=== PATIENT | male | born 1980 | race African-American/Black ===

== ENCOUNTER 2016-07-24 14:51 | Emergency (ER) ==
--- NOTE | 2016-07-24 16:04 | Diag Imaging Result Document ---
PROCEDURE NAME: FLAT/UPRIGHT ABD/1 VIEW CHEST - 07/24/2016 FLAT AND UPRIGHT AND CHEST, THREE VIEWS: FINDINGS: The lungs are well expanded. The heart is not enlarged. No pneumonia. No free air beneath the diaphragm. There is stool throughout the colon. The bowel loops are not dilated. No organomegaly. No foreign body. No abnormal abdominal calcifications. IMPRESSION: Mild constipation.
--- NOTE | 2016-07-24 16:22 | PROVIDER DOCUMENTATION ---
HPI-Abdominal Pain/GI Problem <Roxana King - Last Filed: 07/24/16 19:40> - General Source: patient - History of Present Illness-ABD Nature of Presenting Problems: 35 y/o AAM c/o right groin pain thinking it is a hernia. states he has an enlargement in the right groin, that has been present for months now. States in the past 3 days it has become more uncomfortable. States he tries to push it back in, but then it comes back out. Denies nausea, vomiting or fevers. Abdominal Pain Onset Location: reports: RLQ Pain Radiation: reports: no radiation Quality of Pain: reports: aching Severity in ED: reports: mild Onset/Duration: reports: other (months) <Naomi Woods - Last Filed: 07/24/16 19:50> - General Chief Complaint: Groin Pain Stated Complaint: POSS HERNIA Time Seen by Provider: 07/24/16 16:11 Allergies/Adverse Reactions: Patient Allergies Allergy/AdvReac Type Severity Reaction Status Date / Time No Known Allergies Allergy Verified 07/24/16 17:45 Home Medications: Home Medication List Medication Instructions Recorded Confirmed Last Taken Type No Home Medications 07/24/16 07/24/16 Unknown History Review of Systems - Adult - REVIEW OF SYSTEMS - ADULT Constitutional: reports: no symptoms reported. denies: chills, fever, fatique Eyes: reports: no symptoms reported. denies: blurred vision, double vision, eye pain Ears, Nose, Mouth & Throat: reports: no symptoms reported. denies: ear pain, nose pain, throat pain Cardiovascular: reports: no symptoms reported. denies: chest pain, palpitations Respiratory: reports: no symptoms reported. denies: cough, shortness of breath , wheezing Gastrointestinal: reports: no symptoms reported. denies: abdominal pain, diarrhea, nausea, vomiting Genitourinary: reports: no symptoms reported. denies: dysuria, discharge, frequency, incontinence Musculoskeletal: reports: no symptoms reported. denies: bone pain, back pain, muscle aches Integumentary: reports: no symptoms reported. denies: rash Neurological: reports: no symptoms reported. denies: headache/migraines Psychiatric: reports: no symptoms reported Endocrine: reports: no symptoms reported Hematologic/Lymphatic: reports: no symptoms reported Allergic/Immunologic: reports: no symptoms reported All Other Systems: Reviewed and Negative <Naomi Woods - Last Filed: 07/24/16 19:50> Past History - Adult - PAST MEDICAL HISTORY-ADULT Review of Records: reports: Old Records Reviewed, Nursing Assessment Review, Medications Reviewed Major Childhood Illnesses: reports: denies history Cardiovascular: reports: denies history Respiratory: reports: denies history Gastrointestinal: reports: denies history Genitourinary: reports: denies history Musculoskeletal: reports: denies history Neurological: reports: denies history Endocrine/Immune: reports: denies history Other Conditions: reports: denies history - PRIOR SURGERIES/PROCEDURES Surgical/Procedure History: reports: back/neck (lumbar fusion) - FAMILY HISTORY Family History: reviewed, not pertinent - SOCIAL HISTORY Smoking: denies Substance Use: none/never Alcohol Use Frequency: never <Naomi Woods - Last Filed: 07/24/16 19:50> Physical Exam-General - PHYSICAL EXAM-ADULT Initial Vital Signs Reviewed: Yes - CONSTITUTIONAL General Appearance: appears well, alert, no apparent distress - EYES Eyes: PERRL/EOMI, pink conjunctivae - HEAD, EARS, NOSE, MOUTH & THROAT HENMT: normocephalic/atraumatic, moist mucous membranes - NECK Neck: normal inspection - RESPIRATORY Respiratory: chest non-tender, lungs clear, normal breath sounds, no pleuratic chest pain, no respiratory distress, no accessory muscle use. negative: respiratory distress, decreased breath sounds, accessory muscle use, crackles, rales, rhonchi, wheezing - CARDIOVASCULAR Cardiovascular: normal peripheral pulses, regular rate, rhythm - GASTROINTESTINAL (ABDOMEN) Abdominal Exam: normal bowel sounds, soft, no organomegaly, no pulsatile mass, tenderness (generalized), hernia (right inguinal, I am not able to reduce this) - MUSCULOSKELETAL Extremity: normal gait Peripheral Pulses: radial (R): 2+, radial (L): 2+ - SKIN Integumentary: normal color, normal turgor, warm/dry - NEUROLOGIC Neurologic: grossly normal, no motor/sensory deficits - PSYCHIATRIC Psych/Mental Status: normal mood/affect, normal thought content, normal thought process, oriented x 3 <Naomi Woods - Last Filed: 07/24/16 19:50> Progress - CT/MRI 1 Impression: Abnormal (Fat in the Right inguinal hernia. No bowel. No bowel obscruction. No abscess. No hydronephrosis. Constipation) <Roxana King - Last Filed: 07/24/16 19:40> - PLAN OF CARE/RESULTS Progress/Plan/Lab Results: liam Menjivar as cosmetic sales advisor during the exam Vital Signs Temp Pulse Resp BP Pulse Ox 07/24/16 15:00 98.9 F 81 18 146/80 100 No Known Allergies Allergy (Verified 07/24/16 17:45) No Home Medications 07/24/16 Dietary Diet NPO Start SunJul 24 1513 Laboratory 07/24/16 07/24/16 07/24/16 17:45 17:40 17:40 WBC 9.30 RBC 5.06 Hgb 14.5 Hct 43.7 MCV 86.4 MCH 28.7 MCHC 33.2 RDW Std Deviation 14.2 Plt Count 244 MPV 10.9 H Immature Gran % (Auto) 0.0 Neut % (Auto) 54.4 Lymph % (Auto) 34.1 [place] % (Auto) 8.8 Eos % (Auto) 2.2 Baso % (Auto) 0.5 Immature Gran # (Auto) 0.00 Neut # (Auto) 5.06 Lymph # (Auto) 3.17 [place] # (Auto) 0.82 H Eos # (Auto) 0.20 Baso # (Auto) 0.05 Sodium 140 Potassium 4.2 Chloride 100 Carbon Dioxide 29 Anion Gap 11 BUN 9 Creatinine 0.9 Estimated GFR/1.73 m2 > 60 BUN/Creatinine Ratio 10 Glucose 87 Calculated Osmolality 277 Calcium 9.3 Total Bilirubin 0.20 AST 20 ALT 17 Alkaline Phosphatase 90 Total Protein 7.2 Albumin 4.4 Globulin 2.8 Albumin/Globulin Ratio 1.6 Amylase 60 Lipase 19 Urine Source CLEAN CATCH Urine Color YELLOW Urine Turbidity CLEAR Urine pH 7.0 Ur Specific [place] 1.014 Urine Protein NEGATIVE Ur Glucose (Stick) NEGATIVE Ur Ketones (Stick) NEGATIVE Urine Blood NEGATIVE Urine Nitrite NEGATIVE Urine Bilirubin NEGATIVE Urobilinogen Dipstick NORMAL Urine Leukocytes NEGATIVE Urine WBC (Auto) <10 Urine RBC (Auto) <10 U Epithel Cells (Auto) <10 Urine Bacteria (Auto) NEGATIVE Orders Category Date Time Status Saline Loc DIRECTED Care 07/24/16 15:13 Active NPO Diet 07/24/16 15:[address] ABD/PELVIS W/ IV CONT ONLY [CT] Stat Exams 07/24/16 17:37 Taken flat [FLAT/UPRIGHT ABD/1 VIEW CHEST] [RAD] Stat Exams 07/24/16 15:20 Completed AMYLASE [CHEM] Stat Lab 07/24/16 17:40 Completed CBC WITH ELECTRONIC DIFF [HEME] Stat Lab 07/24/16 17:40 Completed COMPREHENSIVE METABOLIC PANEL [CHEM] Stat Lab 07/24/16 17:40 Completed LIPASE [CHEM] Stat Lab 07/24/16 17:40 Completed URINALYSIS W/POSS RFLX CULT [URINALYSIS] Stat Lab 07/24/16 17:[address] Gandara to bedside and directly participated in patient care - XRAY 1 XRAY: Bilateral XRAY Study: Chest Impression: Abnormal (mild constipation) - CT/MRI 1 CT Study: Abdomen, Pelvis <Naomi Woods - Last Filed: 07/24/16 19:50> Departure <Roxana King - Last Filed: 07/24/16 19:40> - Departure Time of Disposition Order: 19:49 Certified Medical Emergency: Emergent <Naomi Woods - Last Filed: 07/24/16 19:50> - Departure DIAGNOSIS: Right inguinal hernia, Constipation by delayed colonic transit Disposition: HOME 01 Condition: Stable Additional Instructions: Follow up with Dr. Singh, surgeon ED Follow Up Instructions: You have been treated by a care provider in the Emergency Department. These instructions are being provided to you so you can have an understanding of how to care for yourself upon discharge. Upon discharge from the Emergency Department, you are responsible for making arrangements for follow-up care by a physician of your choice. Take all prescribed medications as directed. Return to the Emergency Department immediately for any new or worsening symptoms. You may call the Physician Referral phone number at [phone] to obtain a list of Physicians who are taking new patients. Referrals: None,PCP [Primary Care Provider] - Kolby Osorio MD [STAFF PHYSICIAN] - Attestation - Physician/ JOSE L Attestation Patient care was provided by Advanced Practice Provider:: Yes Advanced Practice Provider:: Naomi Woods Advanced Practice Provider documentation review:: The Mid-level provider documentation, treatment plan and medical decision making was reviewed by the physician who agrees with all treatment and medical decision making by the MLP. The physician spent face to face time with patient:: Yes <Naomi Woods - Last Filed: 07/24/16 19:50> Physician Attestation
[2016-07-24 17:53] LABS: MANUAL DIFF NEEDED? NO
[2016-07-24 17:58] LABS: BASO% 0.5 % (0.0-0.8); EOS% 2.2 % (0.0-10.0); HEMATOCRIT 43.7 % (42.0-52.0); HEMOGLOBIN 14.5 g/dL (14.0-18.0); LYMPH# 3.17 X1000 (1.2-3.4); LYMPH% 34.1 % (20.5-51.1); MCH 28.7 PG (27-31); MCHC 33.2 g/dL (33-37); MCV 86.4 FL (81-99); MONO# 0.82 X1000 (0.11-0.59); MONO% 8.8 % (1.7-9.3); MPV 10.9 FL (7.4-10.4); NEUT% 54.4 % (42.2-75.2); PLT 244 X1000 (130-400); RBC 5.06 XMIL (4.7-6.1)
[2016-07-24 18:13] LABS: URINE CULTURE NEEDED? NO; URINE MICRO REVIEW NEEDED? NO; URINE SOURCE CLEAN CATCH
[2016-07-24 18:18] LABS: BILIRUBIN URINE NEGATIVE (NEGATIVE); BLOOD URINE NEGATIVE (NEGATIVE); COLOR YELLOW; GLUCOSE URINE NEGATIVE (NEGATIVE); LEUKOCYTES URINE NEGATIVE (NEGATIVE); NITRITE URINE NEGATIVE (NEGATIVE); PROTEIN URINE NEGATIVE (NEGATIVE); SP GRAVITY URINE 1.014; TURBIDITY URINE CLEAR (CLEAR); UROBILINOGEN URINE NORMAL (NORMAL)
[2016-07-24 18:20] LABS: UR EPITHELIAL CELLS <10 /HPF (<10); URINE BACTERIA NEGATIVE /HPF; URINE RBC <10 /HPF (<10); URINE WBC <10 /HPF (<10)
[2016-07-24 18:33] LABS: AGAP 11; ALBUMIN 4.4 g/dL (3.5-5.0); ALKALINE PHOSPHATASE 90 U/L (32-122); AMYLASE 60 U/L (20-200); BUN 9 mg/dL (8-22); CALCIUM 9.3 mg/dL (8.8-10.2); CHLORIDE 100 mmol/L (98-107); COSMO 277; GOT 20 U/L (10-34); GPT 17 U/L (10-44); LIPASE 19 U/L (13-60); POTASSIUM 4.2 mmol/L (3.5-5.1); SODIUM 140 mmol/L (136-145); TCO2 29 mmol/L (25-35); TOTAL PROTEIN 7.2 g/dL (6.3-8.3)
[2016-07-24 20:10] VITALS: BP 134/92
--- NOTE | 2016-07-24 21:07 | Diag Imaging Result Document ---
PROCEDURE NAME: CT ABD/PELVIS W/ IV CONT ONLY - 07/24/2016 CT ABDOMEN AND PELVIS WITH INTRAVENOUS CONTRAST FINDINGS: The stomach is distended with debris. Normal spleen, pancreas, gallbladder, liver, adrenal glands, and kidneys. No hydronephrosis. Normal aorta. There are small hazy paraaortic lymph nodes. There is stool throughout the colon. No bowel obstruction. No abscess. The urinary bladder is moderately distended and appears normal. There is a right inguinal hernia filled with fat. IMPRESSION: 1. Fat filled right inguinal hernia. 2. Constipation. 3. Nonspecific hazy paraaortic lymph nodes. A preliminary report was given at 7:25 p.m.
== END 2016-07-24 20:10 | disposition home or self-care (01) ==
LOC: ED 14:51
DX: K40.90 Unilateral inguinal hernia, without obstruction or gangrene, not specified as recurrent (principal); K59.01 Slow transit constipation; R10.31 Right lower quadrant pain
CPT/HCPCS: 74022; 74177; 80053; 81001; 82150; 83690; 85025; Q9966